=== PATIENT | male | born 1995 | race Caucasian/White ===

== ENCOUNTER 2020-11-19 16:14 | Emergency (ER) | payer OTHER ==
[~2020-11-19] VITALS: Ht 162.6 cm; Wt 83.5 kg
[2020-11-19] MEDS ORDERED: HYDROXYZINE HCL25 MG PO (16:48)
== END 2020-11-19 17:13 | disposition home or self-care (01) ==
LOC: ED 16:14
DX: F41.9 Anxiety disorder, unspecified (principal)
CPT/HCPCS: 99283

== ENCOUNTER 2021-11-25 11:35 | Emergency (ER) | payer OTHER ==
[~2021-11-25] VITALS: Ht 162.6 cm; Wt 80.5 kg
[~2021-11-25 11:35] MED LIST: FAMOTIDINE20 MG PO; HYDROXYZINE HCL25 MG PO; SUCRALFATE1 GM PO
== END 2021-11-25 13:50 | disposition home or self-care (01) ==
LOC: ED 11:35
DX: K92.1 Melena (principal)
CPT/HCPCS: 36415; 80053; 85025; 99283

== ENCOUNTER 2022-03-30 14:05 | Emergency (ER) | payer OTHER ==
[~2022-03-30] VITALS: Ht 162.6 cm; Wt 79.6 kg
== END 2022-03-30 16:48 | disposition home or self-care (01) ==
LOC: ED 14:05
DX: R04.0 Epistaxis (principal); R55 Syncope and collapse
CPT/HCPCS: 36415; 85025; 99284